=== PATIENT | female | born 1990 | race Caucasian/White ===

== ENCOUNTER 2019-12-22 16:42 | Outpatient (RCR) | payer OTHER, SELFPAY ==
[2019-12-22] MEDS: RHO(D) IMMUNE GLOBULIN 300 MCG SYRINGE IM (20:27)
== END 2020-03-21 23:59 | disposition home or self-care (01) ==
LOC: ANHLAB 16:42
PROVIDERS: PCP Family Medicine; Visit Provider Advanced Practice Midwife
DX: O20.0 Threatened abortion (principal); Z29.13 Encounter for prophylactic Rho(D) immune globulin; O36.0990 Maternal care for other rhesus isoimmunization, unspecified trimester, not applicable or unspecified; Z3A.00 Weeks of gestation of pregnancy not specified
CPT/HCPCS: 36415; 85461; 90384; 96372; J2790

== ENCOUNTER 2020-04-01 11:05 | Outpatient (RCR) | payer OTHER, SELFPAY ==
[2020-04-01 13:23] LABS: Hematocrit 35.1 % (37.0-47.0); Hemoglobin 11.7 g/dL (12.0-15.0)
[2020-04-01 13:38] LABS: Glucose 1 Hour PP 50gm Dose 109 mg/dL
[2020-04-01 14:16] LABS: HIV 1/2 Ab P24 Ag Result Negative (Negative)
[2020-04-01] MEDS: RHO(D) IMMUNE GLOBULIN 300 MCG SYRINGE IM (16:18)
[2020-04-02 09:03] LABS: Rapid Plasma Reagin Non-Reactive (NonReactive)
== END 2020-06-30 23:59 | disposition home or self-care (01) ==
LOC: ANHLAB 11:05
PROVIDERS: PCP Family Medicine; Visit Provider Obstetrics & Gynecology
DX: Z29.13 Encounter for prophylactic Rho(D) immune globulin (principal); Z11.4 Encounter for screening for human immunodeficiency virus [HIV]; O36.0130 Maternal care for anti-D [Rh] antibodies, third trimester, not applicable or unspecified; Z3A.00 Weeks of gestation of pregnancy not specified
CPT/HCPCS: 36415; 82947; 85014; 85018; 85461; 86592; 86703; 90384; 96372; G0432; J2790

== ENCOUNTER 2020-06-05 10:35 | Inpatient (IN) | payer OTHER, SELFPAY ==
[2020-06-05] VITALS (100 sets, daily range): BP systolic 92–143; BP diastolic 50–85; PULSE 82–115; TEMP 36.7–37.7; O2SAT 98–100; BMI 30.5
--- NOTE | 2020-06-05 11:08 | LDADM ---
This patient, Sabrina Nieves, was admitted to Labor/Delivery/Recovery 106 on 06/05/20 at 10:35. Plans for labor, pain management and were discussed with patient. Patient/family oriented to hospital policies and general routines including ID bracelet, bed and alarms, visiting hours, pain management, procedures, bathroom and other care routines, personal items, smoking policy, room service/diet and guest tray routines, infant security routines, and visiting hours. Patient/Family are encouraged to report perceived risks to care and to ask questions if they do not understand what they are told or what they should do. See OBIX for further documentation.
[2020-06-05 11:17] LABS: Basophils Percent Auto 0.1 % (0.2-1.2); Eosinophils Absolute Auto 0.1 K/mm3 (0-0.3); Eosinophils Percent Auto 1.1 % (0-4.4); Hematocrit 36.5 % (37.0-47.0); Hemoglobin 12.4 g/dL (12.0-15.0); Immature Granulocyte Absolute 0.02 K/mm3 (0.00-0.031); Immature Granulocyte Percent A 0.3 % (0-0.5); Lymphocytes Absolute Auto 1.53 K/mm3 (0.9-3.2); Lymphocytes Percent Auto 21.1 % (18.3-44.2); Mean Corpuscular Hemoglobin 29.5 pg (26-34); Mean Corpuscular Volume 86.9 fl (80-100); Mean Platelet Volume 10.5 fl (7.4-10.4); Monocytes Absolute Auto 0.5 K/mm3 (0.1-0.6); Monocytes Percent Auto 7.3 % (2.6-8.5); Neutrophils Absolute Auto 5.1 K/mm3 (1.3-6.7); Neutrophils Percent Auto 70.1 % (45.5-73.1); Platelet Count Result 172 k/mm3 (150-375); Red Cell Distribution Width 12.7 % (11.5-14.5); White Blood Count 7.3 K/mm3 (4.5-10.0)
[2020-06-05] MEDS: LACTATED RINGERS 1,000 ML 125 ML IV CONT ×2 (14:05→21:13)
[2020-06-05] MEDS: OXYTOCIN 30 UNITS/NS 500 ML 30 UNITS/500 ML BAG 6 UNITS IV CONT (14:06)
[2020-06-06] VITALS (72 sets, daily range): BP systolic 107–142; BP diastolic 52–92; PULSE 69–193; RESP 16–18; TEMP 36.6–38.7; O2SAT 96–100
[2020-06-06] MEDS: SODIUM CHLORIDE 0.9% IV 300 ML 600 ML I-UTERINE
[2020-06-06] MEDS: LACTATED RINGERS 1,000 ML 125 ML IV CONT (01:29)
[2020-06-06] MEDS: AMPICILLIN 2 GM/NS 100 ML 2 GM/100 ML BAG IVPB (01:29)
[2020-06-06] MEDS: miSOPROStol 200 MCG TABLET 800 MCG (03:41)
[2020-06-06] MEDS: OXYTOCIN 30 UNITS/NS 500 ML 30 UNITS/500 ML BAG 125 UNITS IV CONT (03:50)
--- NOTE | 2020-06-06 04:02 | WPDOBADMIT ---
Obstetrics - Admit Note Admission Note: Admitted with srom. record reviewed. No pertinent additions to the history and/or any subsequent changes in the physical findings that are not consistent with the expected course of the were found. Additions to the history and/or subsequent changes in the physical findings follow. None.
--- NOTE | 2020-06-06 04:02 | PM.OBPRVD ---
OB - Delivery Note Procedure Delivery date: 06/06/20 Intrapartal events: None Delivery augmentation: pitocin Delivery monitor: external FHT, external uterine and internal FHT Route of delivery: Laceration Description: Perineal - 1st Degree Delivery repair: vicryl Estimated blood loss (mL): 256 Anesthesia type: Epidural Baby Date of : 06/06/20 Time of : 03:28 Weeks of gestation at delivery: 39 Infant gender: Male Weight (pounds): 6 Weight (ounces): 15 presentation: vertex position: Left Occiput Anterior Placenta delivery description: Spontaneous score one minute: 8 score five minutes: 9 Narrative: Delayed cord clamping x 1.5 minutes. Venous gas collected and handed off to staff. Unable to obtain arterial. Initial difficulty with boggy uterus. Slow to firm with massage. Cytotec 300mcg per rectum. Bleeding controlled. QBL 356.
[2020-06-06] MEDS: ACETAMINOPHEN 500 MG TABLET 1000 MG PO (05:26)
[2020-06-06] MEDS: WITCH HAZEL 40 PADS 1 PAD TOPICAL (05:26)
[2020-06-06] MEDS: BENZOCAINE 20% AER SPR (*SP) 56 GM CAN 1 SPRAY TOPICAL (05:26)
--- NOTE | 2020-06-06 07:10 | PC.NURSE ---
Patient transferred to post room # 290 per wheelchair. Support person present. Oriented to unit, room, information board, rooming in, admission packet and security measures. Patient verbalizes understanding.
[2020-06-06] MEDS: IBUPROFEN 600 MG TABLET PO ×3 (08:02→23:01)
[2020-06-06] MEDS: DOCUSATE SODIUM 100 MG CAPSULE PO ×2 (08:02→20:07)
[2020-06-06] MEDS: MULTIVIT/MIN/PREN/FOL AC/IRON TABLET 1 TAB PO (08:02)
[2020-06-07 05:03] LABS: Hematocrit 26.4 % (37.0-47.0); Hemoglobin 8.7 g/dL (12.0-15.0)
[2020-06-07] MEDS: IBUPROFEN 600 MG TABLET PO ×2 (06:17→15:23)
[2020-06-07 07:02] LABS: Rapid Plasma Reagin Non-Reactive (NonReactive)
--- NOTE | 2020-06-07 07:41 | P.PNOB_ITS ---
OB - PN: Subj Subjective Date/time seen: 06/07/20 07:41 Interval history: Doing great! Nursing with nipple shield, also pumping. wants baby circumcised. Patient comments: no complaints and pain well controlled [place] baby status: doing well [place] feeding status: exclusively breast feeding OB - PN: Obj Data Labs CBC & Chem 7: 06/07/20 04:19 Labs: Laboratory Results - last 24 hr 06/05/20 06/07/20 06/07/20 11:00 04:19 04:19 Hgb 8.7 L D Hct 26.4 L RPR Non-reactive Blood Type O Negative Antibody Screen TNP Screen Negative Baby's Blood Type A neg Baby's HUMA Positive Doses of RhIg Required 1 OB - PN A/P Plan day: 1 Plan: routine care Comments: Anemia- asymptomatic, continue iron and PNV DC home today per pt preference. Time Spent With Patient Time: Total time spent is greater than 50% in coordination of care (as documented) at patient's floor/unit and/or counseling patient: Time with patient: less than 15 minutes Exam Narrative: Exam Narrative: NAD abdomen soft, nontender, fundus firm below the umbilicus Extremities nontender, 1+ edema
--- NOTE | 2020-06-07 07:46 | PM.OBDSVD ---
DS: Admitting Diagnosis Admitting Diagnosis Admitting Diagnosis: ROM DS: Discharge Diagnosis Discharge Diagnosis (1) , delivered: Code(s): O80 - Encounter for full-term uncomplicated delivery Status: Acute OB - DS: Summary OB Procedures : None OB Procedures Intrapartum: Spontaneous Vag Delivery OB Procedures: : None Peripartum Data Delivery Method: Natural Vaginal Laceration Description: Perineal - 1st Degree complications: none Status at Discharge Functional status at discharge: independent ambulation Time Spent with Patient Time attestation: Total time spent providing and/or coordinating discharge services: Time spent: Less than 30 minutes Exam Narrative: Exam Narrative: NAD abdomen soft, appropriately tender Ext non tender, 1+ edema DS: Data Data Completed and Pending Labs on day of discharge: Labs from last 24 hours 06/07/20 06/07/20 06/05/20 04:19 04:19 11:00 Hgb 8.7 L D Hct 26.4 L RPR Non-reactive Blood Type O Negative Antibody Screen TNP Screen Negative Baby's Blood Type A neg Baby's HUMA Positive Doses of RhIg Required 1 Discharge Plan Discharge Attending physician on discharge: Nikki Simmons Discharging Clinician: Nikki Simmons Anticipated Discharge Date/Time: 06/07/20 15:00 Patient Disposition: Home, Self-Care Activity: may shower and pelvic rest Diet: as tolerated Discharge Instructions: Pelvic rest for 6 weeks Patient Instructions: Antibiotic Form Stand Alone Forms: General Discharge Information Follow-up/Referrals: Poncho Mckenzie MD [Physician] - (4 weeks) Discharge Medications: New polysaccharide iron complex 150 mg iron Capsule 150 mg PO BIDWM Qty: 60 RF: 0 Continued PNV cmb#95-ferrous fumarate-FA [] 28 mg iron- 800 mcg Tablet 1 tablet PO DAILY RF: 0 Date of admission: 06/05/20 10:35 Primary Care Provider: Gilberto Sheppard Admitting Provider: Poncho Mckenzie Attending physician on admission: Poncho Mckenzie Condition: Stable
[2020-06-07 08:00] VITALS: BP 110/58; BP 110/78; PULSE 81; RESP 16; RESP 18; TEMP 36.6; O2SAT 100
[2020-06-07] MEDS: BENZOCAINE 20% AER SPR (*SP) 56 GM CAN 1 SPRAY TOPICAL (08:13)
[2020-06-07] MEDS: DOCUSATE SODIUM 100 MG CAPSULE PO ×2 (08:13→15:23)
[2020-06-07] MEDS: LANOLIN (LANSINOH) 7.5 GM CREAM 1 APPLIC TOPICAL (08:13)
[2020-06-07] MEDS: POLYSACCHARIDE IRON COMPLEX 150 MG CAPSULE PO ×2 (08:13→15:24)
[2020-06-07] MEDS: WITCH HAZEL 40 PADS 1 PAD TOPICAL (08:13)
[2020-06-07] MEDS: MULTIVIT/MIN/PREN/FOL AC/IRON TABLET 1 TAB PO (08:13)
--- NOTE | 2020-06-07 12:15 | PC.NURSE ---
Consult with pt., mother reports she is using the nipple shield for all feedings due to inverted nipples. Mother is pumping after all feedings and will syringe feeding 2-3mls of EBM each feeding. Right nipple is inverted and will draw out with stimulation, right easily will draw out. Discussed shield use with suggestions to attempt before using shield, of stimulation, rolling nipples or pumping a few minutes to draw out nipple before latching. Discussed nipple shield precautions and possible complications. Instructions given on application and cleaning of shield.Patient able to return demonstration on proper application of shield. Discussed the need to initiate pumping if continues to nurse with the shield. Patient verbalizes understanding. Reviewed infant feeding cues, frequencies, duration of feedings, feeding elimination flow sheet, and signs of adequate intake. Demonstrated stimulation techniques to wake for feeding. Assisted with to breast. Reviewed positioning/alignment in cross cradle, holding breast in U hold and guided asymmetrical latch on. was able to latch correctly to left breast without shield. nursed eagerly, with steady draws and frequent swallowing noted. Reviewed signs of a correct latch, effective nursing and suck swallow ratio. Infant was able to maintain latch without discomfort to mother. Nipple care reviewed. suggested to stimulate to keep nursing effectively for increased intake and to assist with maintaining deep latch. Instructed mother to call out for RN/LC assistance if she is unable to latch infant for feeding or she has discomfort with nursing. Instructed feeding should be initiated three hours from start of last feeding or if feeding cues are noted before. Mother voiced understanding of information shared.
--- NOTE | 2020-06-07 17:50 | PC.NURSE ---
[facility] called and stated that pt. does not require rhogam injection even-though blood bank released order for 1 vial. Mother O-, A-.
[2020-06-09 08:23] VITALS: BP 109/63; PULSE 90; RESP 16; TEMP 36.9; O2SAT 98
== END 2020-06-07 16:35 | disposition home or self-care (01) | DRG 807 ==
LOC: ANHLDR 06-06 03:09 → ANHOB2 06-07 07:46 → ANHLDR 06-09 07:03 → ANHOB2 06-09 07:03
PROVIDERS: Advanced Practice Midwife; Admitting Provider Obstetrics & Gynecology; PCP Family Medicine; Visit Provider Obstetrics & Gynecology
DX: O70.0 First degree perineal laceration during delivery (principal); Z37.0 Single live birth; Z3A.39 39 weeks gestation of pregnancy
CPT/HCPCS: 36415; 84112; 85014; 85018; 85025; 85461; 86592; 86850; 86880; 86900; 86901; A9270; J0290; J0690; J2590; J2795; J7030; J7120

== ENCOUNTER → 2020-11-13 01:37 | Outpatient (CLI) | payer OTHER, SELFPAY ==
[2020-11-13 19:16] LABS: SARS-CoV-2 RNA PCR Negative
== END ==
PROVIDERS: PCP Family Medicine; Visit Provider Obstetrics & Gynecology
DX: Z01.812 Encounter for preprocedural laboratory examination (principal); Z20.822 Contact with and (suspected) exposure to COVID-19
CPT/HCPCS: C9803; U0003; U0005

== ENCOUNTER 2020-11-17 01:23 | Day surgery (SDC) | payer OTHER, SELFPAY ==
[2020-11-08 15:45] VITALS: BMI 24.5
[2020-11-17 06:30] VITALS: BP 103/63; PULSE 65; RESP 16; TEMP 36.5; O2SAT 98
[2020-11-17] MEDS: ACETAMINOPHEN 500 MG TABLET 1000 MG PO (06:37)
[2020-11-17] MEDS: LACTATED RINGERS 1,000 ML 30 ML IV CONT (06:38)
--- NOTE | 2020-11-17 06:39 | WPDANESEPPF ---
Anes - Initial Pre Proc Eval Procedure: Operation Date: 11/17/20 07:30 Proposed Procedures p Hysteroscopy, Dilation and Curettage - Poncho Mckenzie MD Date/Time: 11/17/20 06:39 Surgeon: Poncho Mckenzie MD Pre Op Diagnosis: lesion of endometrium Patient Data Age: 30 Gender: F Height: 1.52 m Weight: 57 kg Allergies Allergy/AdvReac Type Severity Reaction Status Date / Time tree nut Allergy Swelling Verified 11/08/20 15:44 Home Medications Medication Instructions Recorded Confirmed Type PNV cmb#95-ferrous fumarate-FA 1 tablet PO DAILY 05/13/20 11/08/20 History [] Patient hx anesthesia problems: none Family hx anesthesia problems: none PMFSH Past Medical History Medical History (Updated 11/16/20 @ 13:04 by Sony Torres DO) Anxiety Migraine Family History Family History Grandparent Diabetes mellitus Hypertension Family history of elevated blood lipids Family history of cardiovascular disease Carcinoma of colon, Onset Age: 65 Acute myocardial infarction Cerebrovascular accident Father Hypertension Family history of elevated blood lipids Social History Social History Smoking status: Never smoker Alcohol intake: never Substance use: never Substance use type: does not use Living arrangements: with family Gender identity (if verbalized by the patient): Female Spiritual care concerns: No Anes - Eval Final PreProcedure Day of Procedure 11/17/20 06:39 Patient weight: normal Heart: regular rate and rhythm Lungs: clear to auscultation and normal air movement Airway: Mallampati scale class II Neurological: alert and oriented Last oral intake: >/= 8 hours ASA classification: II Emergent: no Anesthetic plan: proceed Anesthesia type and monitoring: general GIVS and standard monitoring Informed Consent: The patient's anesthetic plan and its attendant risks and benefits were discussed with the patient/family/POA. Questions were solicited and answers provided to the satisfaction of the patient/family/POA.
--- NOTE | 2020-11-17 07:18 | WPDHPUPDATE1 ---
History and Physical Update Update Date/Time: 11/17/20 07:18 History and Physical has been reviewed, including an updated exam of the patient. There are NO changes in the patient's condition. Risks, benefits, and alternatives have been discussed and questions answered. Patient agrees to proceed with procedure.
--- NOTE | 2020-11-17 07:54 | PM.PROC ---
Procedure Note - Detailed Date of procedure: 11/17/20 Pre-op diagnosis: lesion of endometrium Post-op diagnosis: same Procedure performed: Hysteroscopy D&C Description of procedure: The patient was taken the operating room. She was prepped and draped in the dorsal lithotomy position after induction of mac anesthesia. A speculum was placed in the vagina. The cervix grasped with a tenaculum. The cervix was injected at 3 and 9:00 a.m. with 1% lidocaine. Cervix was dilated up to 1 cm. The hysteroscope was inserted the intrauterine cavity and the above findings were noted. A medium-size curette was then used to curettage all surfaces within the endometrial cavity. The endometrial curettings were collected on a Telfa. There were submitted to the pathology department. Hysteroscope was reinserted the intrauterine cavity to re-examine the endometrial surfaces. The hysteroscope was withdrawn. The tenaculum was removed. The speculum was removed. The patient tolerated the procedure well. She was taken recovery room stable condition. Sponge lap needle counts were correct x2. Anesthesia: MAC Surgeon: Poncho Mckenzie MD Estimated blood loss (mL): 75 Drains: No Packing: No Pathology: yes Complications: No immediate complications Condition: stable Disposition: PACU Findings: There was some thickening of the endometrium. There was nodularity to the posterior uterine surface. The nodularity was essentially not present after the endometrial curettage. There was normal appearing vulva vagina and cervix.
[2020-11-17 08:04] VITALS: BP 120/65; PULSE 69; RESP 16; O2SAT 98
[2020-11-17 08:38] VITALS: BP 116/67; PULSE 59
[2020-11-17 08:52] VITALS: BP 110/57; PULSE 58
== END 2020-11-17 09:00 | disposition home or self-care (01) ==
PROVIDERS: PCP Internal Medicine; Visit Provider Obstetrics & Gynecology
PROC: 0U5B8ZZ Destruction of Endometrium, Via Natural or Artificial Opening Endoscopic (ICD-10-PCS; CPT 58563; principal; 2020-11-17 07:30)
DX: N85.8 Other specified noninflammatory disorders of uterus (principal); F41.9 Anxiety disorder, unspecified
CPT/HCPCS: 58558; 88305; A9270; C9803; J2250; J2704; J3010; J7030; J7120; U0003; U0005

== ENCOUNTER 2022-03-13 10:50 | Outpatient (CLI) | payer OTHER, SELFPAY ==
[2022-03-13] MEDS: RHO(D) IMMUNE GLOBULIN 300 MCG/2 ML SYRINGE IM (18:46)
== END 2022-03-13 10:51 | disposition home or self-care (01) ==
LOC: ANHLAB 10:53
PROVIDERS: PCP Internal Medicine; Visit Provider Obstetrics & Gynecology
DX: O26.859 Spotting complicating pregnancy, unspecified trimester (principal); Z3A.00 Weeks of gestation of pregnancy not specified
CPT/HCPCS: 36415; 85461; 90384; 96372; J2790

== ENCOUNTER → 2022-07-05 09:49 | Outpatient (CLI) | payer OTHER, SELFPAY ==
--- NOTE | ~2022-07-05 | US_ITS ---
US breast RT complete INDICATION: Right breast pain. 25 weeks . TECHNIQUE: Complete right breast ultrasound including all 4 quadrants in the subareolar location COMPARISON: No prior studies for comparison. FINDINGS: The right breast is composed of normal heterogeneous echotexture without focal solid or cys tic mass. IMPRESSION: 1: Normal right breast ultrasound. BI-RADS CATEGORY 1 - NEGATIVE Reviewed, dictated and finalized at location A. AL TECHNICIAN INSTRUCTOR
== END ==
PROVIDERS: PCP Internal Medicine; Visit Provider Obstetrics & Gynecology
DX: N64.4 Mastodynia (principal)
CPT/HCPCS: 76641

== ENCOUNTER 2022-07-27 10:51 | Outpatient (CLI) | payer OTHER, SELFPAY ==
[2022-07-27 12:10] LABS: Hematocrit 36.2 % (37.0-47.0); Hemoglobin 12.5 g/dL (12.0-15.0)
[2022-07-27 12:25] LABS: Glucose 1 Hour PP 50gm Dose 121 mg/dL
[2022-07-27 13:05] LABS: HIV 1/2 Ab P24 Ag Result Negative (Negative)
[2022-07-27] MEDS: RHO(D) IMMUNE GLOBULIN 300 MCG/2 ML SYRINGE IM (16:54)
== END 2022-07-27 10:52 | disposition home or self-care (01) ==
PROVIDERS: PCP Internal Medicine; Visit Provider Obstetrics & Gynecology
DX: Z36.89 Encounter for other specified antenatal screening (principal); Z3A.00 Weeks of gestation of pregnancy not specified
CPT/HCPCS: 36415; 82947; 85014; 85018; 85461; 86703; 86850; 86900; 86901; 90384; 96372; G0432; J2790

== ENCOUNTER 2022-10-05 12:26 | Outpatient (RCR) | payer OTHER, SELFPAY ==
--- NOTE | ~2022-10-05 | US_ITS ---
EXAMINATION: US OB limited w BPP DATE: 10/05/2022 14:40 INDICATION: Decelerations during third trimester TECHNIQUE: Real-time pelvic ultrasound was performed. The interpreting radiologist was not present fo r the study. COMPARISON: None. FINDINGS: There is a single living fetus in vertex presentation. The placenta is anterior. heart rate is 138 beats per minute (bpm). The amniotic fluid index is 11.9 cm which is normal (normal range: 7.3 cm to 23.9 cm). Biophysical profile performed by the technologist: breathing (30 sec sustained breathing in 30 minutes): 0 out of 2 movement (3 gross body movements in 30 minutes): 2 out of 2 tone (one episode of zydpdsb-jzzblxjjl-xedqkfb limb movement): 2 out of 2 Amniotic fluid pocket (2 cm): 2 out of 2 Total score: 6 out of 8 IMPRESSION: 1. Single living fetus in vertex presentation. 2. Biophysical profile 6 out of 8. 3. Normal amniotic fluid index. Reviewed, dictated and finalized at location L.
[2022-10-05 13:51] VITALS: BP 119/69; PULSE 81
--- NOTE | 2022-10-05 14:58 | PC.NURSE ---
1552: AMY Novak called, RN received no answer.
[2022-10-05 15:12] VITALS: BP 122/77; PULSE 83
--- NOTE | 2022-10-05 15:14 | PC.NURSE ---
1502: AMY Novak called. AMY reviewed strip and RN reported to CNM pt's NST results, BPP, and ED results. AFSANEHM 1504:left it up to the patient to decide if she is comfortable going home. 1504: Pt stated she feels comfortable going home. RN reviewed reasons to return to the hospital and signs of labor.
== END 2022-11-03 15:12 | disposition home or self-care (01) ==
LOC: ANHOBOP 12:26
PROVIDERS: PCP Internal Medicine; Visit Provider Obstetrics & Gynecology
DX: O36.8130 Decreased fetal movements, third trimester, not applicable or unspecified (principal); O36.8330 Maternal care for abnormalities of the fetal heart rate or rhythm, third trimester, not applicable or unspecified; Z3A.38 38 weeks gestation of pregnancy
CPT/HCPCS: 59025; 76815; 76819

== ENCOUNTER 2022-10-12 22:31 | Inpatient (IN) | payer OTHER, SELFPAY ==
--- NOTE | 2022-10-05 14:55 | PC.NURSE ---
1552: CNM. Matthew Novak called, RN received no answer.
[2022-10-13] VITALS (115 sets, daily range): BP systolic 100–138; BP diastolic 56–91; PULSE 57–162; RESP 16–18; TEMP 36.4–37.6; O2SAT 89–100; BMI 30.7
--- NOTE | 2022-10-13 00:39 | LDADM ---
This patient, Sabrina Nieves, was admitted to Labor/Delivery/Recovery 103 on 10/12/22 at 22:31. Plans for labor, pain management and were discussed with patient. Patient/family oriented to hospital policies and general routines including ID bracelet, bed and alarms, visiting hours, pain management, procedures, bathroom and other care routines, personal items, smoking policy, room service/diet and guest tray routines, security routines, and visiting hours. Patient/Family are encouraged to report perceived risks to care and to ask questions if they do not understand what they are told or what they should do. See OBIX for further documentation.
[2022-10-13 01:20] LABS: Basophils Percent Auto 0.2 % (0.2-1.2); Eosinophils Absolute Auto 0.1 K/mm3 (0-0.3); Eosinophils Percent Auto 0.9 % (0-4.4); Hematocrit 41.5 % (37.0-47.0); Hemoglobin 14.3 g/dL (12.0-15.0); Immature Granulocyte Absolute 0.06 K/mm3 (0.00-0.031); Immature Granulocyte Percent A 0.4 % (0-0.5); Lymphocytes Absolute Auto 2.13 K/mm3 (0.9-3.2); Lymphocytes Percent Auto 15.2 % (18.3-44.2); Mean Corpuscular HGB Conc 34.5 g/dl (32-36); Mean Corpuscular Volume 87.2 fl (80-100); Mean Platelet Volume 10.8 fl (7.4-10.4); Monocytes Percent Auto 6.9 % (2.6-8.5); Neutrophils Absolute Auto 10.7 K/mm3 (1.3-6.7); Neutrophils Percent Auto 76.4 % (45.5-73.1); Platelet Count Result 186 k/mm3 (150-375); Red Blood Count 4.76 M/mm3 (4.2-5.4); Red Cell Distribution Width 12.7 % (11.5-14.5)
[2022-10-13] MEDS: LACTATED RINGERS 1,000 ML 125 ML IV CONT ×2 (01:58→02:37)
--- NOTE | 2022-10-13 02:39 | WPDANESEPP ---
Anes - Eval Pre Procedure Procedure: Labor epidural Date/Time: 10/13/22 02:39 Surgeon: Magaly Preop Diagnosis: Abd pain with contractions Pre Op Diagnosis: Contractions Patient Data Age: 32 Gender: F Height: 1.52 m Weight: 71.4 kg Last Vital Signs Temp 98.6 F 10/13/22 01:00 Pulse 92 10/13/22 01:30 BP 114/71 10/13/22 01:30 Allergies Allergy/AdvReac Type Severity Reaction Status Date / Time cat dander Allergy Sneezing Verified 09/19/22 13:40 tree nut Allergy Swelling Verified 09/19/22 13:40 Home Medications Medication Instructions Recorded Confirmed Type vit no.95-ferrous 1 tablet PO DAILY 05/13/20 11/17/20 History fumarate 28 mg-folic acid 800 mcg tablet () Laboratory Tests 10/13/22 10/13/22 00:15 00:15 WBC 14.0 K/mm3 H K/mm3 (4.5-10.0) RBC 4.76 M/mm3 M/mm3 (4.2-5.4) Hgb 14.3 g/dL g/dL (12.0-15.0) Hct 41.5 % % (37.0-47.0) MCV 87.2 fl fl (80-100) MCH 30.0 pg pg (26-34) MCHC 34.5 g/dl g/dl (32-36) RDW 12.7 % % (11.5-14.5) Plt Count 186 k/mm3 k/mm3 (150-375) MPV 10.8 fl H fl (7.4-10.4) Immature Gran % (Auto) 0.4 % % (0-0.5) Neut % (Auto) 76.4 % H % (45.5-73.1) Lymph % (Auto) 15.2 % L % (18.3-44.2) [place] % (Auto) 6.9 % % (2.6-8.5) Eos % (Auto) 0.9 % % (0-4.4) Baso % (Auto) 0.2 % % (0.2-1.2) Lymph # (Auto) 2.13 K/mm3 K/mm3 (0.9-3.2) [place] # (Auto) 1.0 K/mm3 H K/mm3 (0.1-0.6) Eos # (Auto) 0.1 K/mm3 K/mm3 (0-0.3) Baso # (Auto) 0.0 K/mm3 K/mm3 (0.0-0.1) Abs Immat Gran (auto) 0.06 K/mm3 H K/mm3 (0.00-0.031) Absolute Neuts (auto) 10.7 K/mm3 H K/mm3 (1.3-6.7) Absolute Nucleated RBC 0.0 K/mm3 K/mm3 (0.0-0.012) Nucleated RBC % 0.0 % % (0.0-0.2) RPR Pending Patient hx anesthesia problems: none Family hx anesthesia problems: none Results Review: All pre-operative results and documents have been reviewed as part of the pre-operative evaluation. [facility] Past Medical History Medical History Anxiety Migraine Overweight (BMI 25.0-29.9) Family History Family History Grandparent Diabetes mellitus Hypertension Family history of elevated blood lipids Family history of cardiovascular disease Carcinoma of colon, Onset Age: 65 Acute myocardial infarction Cerebrovascular accident Father Hypertension Family history of elevated blood lipids Social History Social History Smoking status: Never smoker Alcohol intake: never Substance use: never Substance use type: does not use Lack of Transportation: No Lack of Food: Never True Current Housing: I Have Housing Concerned About Future Housing: No Difficulty Paying Gas/Electric Bills: No Difficulty Paying for Meds: No Currently Unemployed: No Education: Trade/Vocational Certificate Difficulty w/ Childcare or Family Care: No Living arrangements: with family Gender identity (if verbalized by the patient): Female Spiritual care concerns: No Exam Day of Procedure 10/13/22 02:39 Patient weight: overweight
[2022-10-13] MEDS: OXYTOCIN 30 UNITS/NS 500 ML 30 UNITS/500 ML BAG 999 UNITS IV CONT (07:27)
--- NOTE | 2022-10-13 07:58 | WPDOBADMIT ---
Obstetrics - Admit Note Admission Note: 32 y/o here in active labor. record reviewed. No pertinent additions to the history and/or any subsequent changes in the physical findings that are not consistent with the expected course of the were found. Additions to the history and/or subsequent changes in the physical findings follow. None.
--- NOTE | 2022-10-13 07:58 | PM.OBPRVD ---
OB - Delivery Note Procedure Delivery date: 10/13/22 Induction method: None Delivery monitor: External FHT and External Uterine Route of delivery: Episiotomy description: None Laceration Description: Perineal - 2nd Degree (and right sulcal) Delivery repair: vicryl Specimen: Yes Quantitative Blood Loss (ml): 74 Anesthesia type: Epidural Baby Date of : 10/13/22 Time of : 07:27 Weeks of gestation at delivery: 39 gender: Female presentation: vertex position: Right Occiput Anterior Placenta delivery description: Spontaneous Cord Vessel Description: 3 Vessels, Nuchal Cord, Tight and Clamped/Cut (Unable to delivery reduce or deliver through. Cord clamped and cut.) score one minute: 5 score five minutes: 8
[2022-10-13] MEDS: OXYTOCIN 30 UNITS/NS 500 ML 30 UNITS/500 ML BAG 125 UNITS IV CONT (08:10)
--- NOTE | 2022-10-13 10:15 | PC.NURSE ---
Patient transferred to post room #287 via (W/C ). Support person present. Oriented to unit, room, information board, rooming in, admission packet and security measures. Patient verbalizes understanding.
[2022-10-13 11:20] LABS: Rapid Plasma Reagin Non-Reactive (NonReactive)
--- NOTE | 2022-10-13 15:08 | PC.NURSE ---
[id number] Introductions were made, then consulted with patient to assess needs related to . Mother led the conversation with her?plans to feed?her infant and the?experience so far. Mother states she breastfed with a nipple shield for 7 months with her first infant. She is comfortable with that plan. Resources provided for inpatient and outpatient services with the feeding sheet, mom/baby guide and name written on the white board. Mother voiced understanding of information and request assistance working with the infant with and without the nipple shield. Mother demonstrates appropriate use of the nipple shield and it is applied to the breast appropriately. Nipple shield provided to mother due to mother's choice. Reviewed good handwashing, cleaning the nipple shield and application. Discussed with mom the nipple shield precautions, possible complications associated with the risks and benefits. Reviewed practicing with a nipple shield, then without and how to protect the milk supply and production. Mom voiced understanding of the importance of hand expression, nipple stimulation and initiating a pumping schedule if continues to nurse with the shield. After infant was skin to skin for a period of time there was demonstration of exploration with crawling to the breast. Mother consented to practicing the football position. RN and mother assisted infant to the left breast and infant had good rocking motion with appropriate suck/swallowing, mother denies pain without the nipple shield. Mother was encouraged to practice with and without the nipple shield and to initiate pumping if she continues using the shield. Mother voiced understanding of skin to skin, stimulating with massage touch, responsive feedings, hand expressed colostrum, talking to infant to encourage if it has been 2 -2.5 hours since the start of the last , to call if does not latch, or if there is discomfort with . Reported to the primary RN.
[2022-10-13] MEDS: IBUPROFEN 600 MG TABLET PO ×2 (16:45→23:17)
[2022-10-13] MEDS: WITCH HAZEL 40 PADS 1 PAD TOPICAL (16:46)
[2022-10-13] MEDS: DOCUSATE SODIUM 100 MG CAPSULE PO (16:46)
[2022-10-13] MEDS: BENZOCAINE 20% AER SPR (*SP) 56 GM CAN 1 SPRAY TOPICAL (16:46)
[2022-10-13] MEDS: LANOLIN (LANSINOH) 7.5 GM CREAM 1 APPLIC TOPICAL (16:47)
[2022-10-14 04:50] VITALS: BP 112/64; PULSE 65; RESP 16; TEMP 36.7; O2SAT 100
[2022-10-14 05:29] LABS: Hematocrit 37.4 % (37.0-47.0); Hemoglobin 12.5 g/dL (12.0-15.0)
--- NOTE | 2022-10-14 10:39 | PM.OBPNVD ---
OB - PN: Subj Subjective Date/time seen: 10/14/22 10:39 Patient comments: no complaints, pain well controlled, incisional pain, tolerating diet and flatus present OB - PN: Obj Data Labs 10/14/22 04:43 Labs: Laboratory Results - last 24 hr 10/13/22 10/14/22 00:15 04:43 Hgb 12.5 Hct 37.4 RPR Non-reactive OB - PN A/P Plan day: 1 Plan: routine care Comments: No problems, routine care Time Spent With Patient Time: Total time spent is greater than 50% in coordination of care (as documented) at patient's floor/unit and/or counseling patient: Exam Const: General: comfortable, no acute distress and alert Resp: Effort & Inspection: normal respiratory effort Auscultation: no crackles, no rales and no rhonchi Cardio: Rate: regular rate Heart sounds: no click, no murmurs and no rubs GI: Inspection: non-distended GI Palp: No Tenderness to palpation present (GI) Auscultation: normal bowel sounds Other: Incision - CDI Extrem: General: normal to inspection, no pedal edema and no calf tenderness
[2022-10-14] MEDS: IBUPROFEN 600 MG TABLET PO (10:41)
[2022-10-14 10:42] VITALS: BP 107/58; PULSE 80; RESP 16; TEMP 36.6; O2SAT 98
[2022-10-14] MEDS: MULTIVIT/MIN/PREN/FOL AC/IRON TABLET 1 TAB PO (10:42)
[2022-10-14] MEDS: DOCUSATE SODIUM 100 MG CAPSULE PO (10:42)
--- NOTE | 2022-10-14 10:42 | PM.OBDSVD ---
DS: Admitting Diagnosis Discharge Date 10/14/2022 Admitting Diagnosis Term DS: Discharge Diagnosis Discharge Diagnosis (1) , delivered: Code(s): O80 - Encounter for full-term uncomplicated delivery Status: Acute OB - DS: Summary OB Procedures : None OB Procedures Intrapartum: Spontaneous Vag Delivery OB Procedures: : None Time Spent with Patient Time attestation: Total time spent providing and/or coordinating discharge services: DS: Data Data Completed and Pending Pending studies at discharge: Pending at discharge 10/13/22 13:53 Surgical [PTH] Routine Labs on day of discharge: Labs from last 24 hours 10/14/22 10/13/22 04:43 00:15 Hgb 12.5 Hct 37.4 RPR Non-reactive Discharge Plan Discharge Discharging Clinician: Poncho Mckenzie Patient Disposition: Home, Self-Care Activity: pelvic rest Diet: regular Patient Instructions: Antibiotic Form Stand Alone Forms: General Discharge Information Follow-up/Referrals: Poncho Mckenzie MD [Physician] - Discharge Medications: Continued PNV cmb#95-ferrous fumarate-FA [] 28 mg iron- 800 mcg Tablet 1 tablet PO DAILY Date of admission: 10/12/22 22:31 Primary Care Provider: Gibran,Tamika Moreno Admitting Provider: Poncho Mckenzie Attending physician on admission: Poncho Mckenzie Condition: Stable
[2022-10-16 10:22] VITALS: BP 124/74; PULSE 79; RESP 16; TEMP 36.6; O2SAT 99
== END 2022-10-14 15:58 | disposition home or self-care (01) | DRG 807 ==
LOC: ANHLDR 10-13 00:16 → ANHOB2 10-13 10:26
PROVIDERS: Advanced Practice Midwife; Admitting Provider Obstetrics & Gynecology; PCP Internal Medicine; Visit Provider Obstetrics & Gynecology
DX: O69.81X0 Labor and delivery complicated by cord around neck, without compression, not applicable or unspecified (principal); Z37.0 Single live birth; Z3A.39 39 weeks gestation of pregnancy; O70.1 Second degree perineal laceration during delivery
CPT/HCPCS: 36415; 85014; 85018; 85025; 86592; 86850; 86880; 86900; 86901; 86902; 88307; A9270; J2590; J2795; J7120

== ENCOUNTER 2023-11-02 08:24 | Outpatient (CLI) | payer OTHER, SELFPAY ==
--- NOTE | ~2023-11-02 | MMUS_ITS ---
EXAMINATION: MM diagnostic suresh BI w belkis, US breast RT limited HISTORY: Palpable right breast abnormality. TECHNIQUE: Additional 3-D tomosynthesis images of the breasts were performed and synthetic 2-D images were generated. CAD analysis was submitted and interpreted. High resolution Limited right breast ult rasound was performed. COMPARISON: Ultrasound dated 07/05/2022 BREAST PARENCHYMAL COMPOSITION: Dense: The breasts are extremely dense, which lowers the sensitivity of mammography. FINDINGS: MAMMOGRAPHIC FINDINGS: There are no suspicious masses, calcifications or architectural distortion in either breast to sugges t malignancy. ULTRASOUND: Limited right breast ultrasound: In the area of palpable concern at 10:00, 10 cm from the nipple ther e is a normal appearing lymph node measuring 11 mm with fatty hilum. No suspicious masses to suggest malignancy. IMPRESSION: 1. No evidence for malignancy in either breast. Benign finding. 2. Routine yearly screening mammogram and regular clinical breast examination are recommended. BI-RADS Category 2: Benign finding(s). Reviewed, dictated and finalized at location B. IMPRESSION: 1. No evidence for malignancy in either breast. Benign finding. 2. Routine yearly screening mammogram and regular clinical breast examination a re recommended. BI-RADS Category 2: Benign finding(s).
== END 2023-11-02 08:25 ==
PROVIDERS: PCP Nurse Practitioner; Visit Provider Nurse Practitioner
DX: N63.10 Unspecified lump in the right breast, unspecified quadrant (principal); R92.2 Inconclusive mammogram
CPT/HCPCS: 76642; 77062; 77066; G0279

== ENCOUNTER 2024-09-26 13:07 | Outpatient (CLI) | payer OTHER, SELFPAY ==
--- NOTE | ~2024-09-26 | XR_ITS ---
XR wrist RT min 3V Ordering provider: Casa Narvaez, History: . Pain in right wrist . Comparison: None. FINDINGS: BONES: No acute fracture or dislocation. No definite scaphoid fracture. JOINT SPACES: Normal. SOFT TISSUES: Normal. IMPRESSION: No acute osseous abnormality right wrist. Reviewed, dictated and finalized at location A.
== END 2024-09-26 13:08 | disposition home or self-care (01) ==
PROVIDERS: PCP Orthopaedic Surgery Hand Surgery; Visit Provider Orthopaedic Surgery Hand Surgery
DX: M25.531 Pain in right wrist (principal)
CPT/HCPCS: 73110